=== PATIENT | male | born 1990 | race Caucasian/White ===

== ENCOUNTER 2016-09-19 12:37 | Emergency (ER) | payer BC ==
[~2016-09-19] VITALS: Ht 188 cm; Wt 122.5 kg
--- NOTE | ~2016-09-19 | CT71 ---
[facility] RADIOLOGY TEXT RESULTS PATIENT: ELMER BALLESTEROS LOCATION: [facility] : 86 UNIT #: [id number] AGE: [address]: Hector Lambert MD SEX: M ORDER DR: [id number] [address] [id number] MR#: [id number] #: [id number] NAME: ELMER BALLESTEROS : 1990 SEX: M STUDY DATE/TIME: 09/19/2016 15:21 UNIT: [facility] ROOM: STUDY DESCRIPTION: CT Head Wo Contrast Attending Physician: Hector Lambert M.D. Ordering Physician: Hector Lambert M.D. Primary Care Physician: Primary Care Physician No MEDICAL IMAGING REPORT This report is preliminary unless electronic signature is present EXAM CT head without contrast INDICATION Migraine headache, nausea x5 days. TECHNIQUE This CT exam was performed with one or more of the following radiation dose reduction techniques: automatic exposure control, adjustment of mA and/or kV according to patient size, and iterative reconstruction. FINDINGS Axial noncontrast images were obtained from the skull base to the vertex. Ventricular size and configuration are normal. There is no evidence of acute infarct or hemorrhage. There are no extra-axial fluid collections. No mass lesion or mass effect is seen. There are no skull fractures. IMPRESSION Normal noncontrast head CT. Dictated by... Jamil Junior M.D. THIS IS AN ELECTRONICALLY VERIFIED REPORT Jamil Junior M.D. at 09/20/2016 6:04 AM JJ/ruddy TD: 09/20/2016 00:01 JOB #: [id number] [facility] RADIOLOGY TEXT RESULTS PATIENT: ELMER BALLESTEROS LOCATION: [facility] : 86 UNIT #: [id number] AGE: [address]: Hector Lambert MD SEX: M ORDER DR: MEDICAL IMAGING REPORT Page 1 of 1 COPY
[2016-09-19 15:08] LABS: BASOPHIL% 0.6 % (0-2.5); EOSINOPHIL# 0.2 X10e3 (0-0.7); EOSINOPHIL% 2.3 % (0.0-7.0); HEMATOCRIT 42.5 % (38.0-50.0); HEMOGLOBIN 14.4 gm/dL (13.0-16.0); LYMPHOCYTE# 1.9 X10e3 (1.0-3.5); LYMPHOCYTE% 23.8 % (17.0-45.0); MEAN CELL VOLUME 89.8 FL (83-96); MEAN CORPUSCULAR HEMOGLOBIN 30.4 PG (28-34); MEAN CORPUSCULAR HGB CONC 33.8 g/dL (30-36); MEAN PLATELET VOLUME 8.2 FL (6.5-11.5); MONOCYTE# 0.6 X10e3 (0-1.0); MONOCYTE% 7.8 % (3.0-12.0); NEUTROPHIL# 5.1 X10e3 (1.5-7.1); NEUTROPHIL% 65.5 % (40-75); PLATELET COUNT 190 X10e3 (140-420); RED BLOOD COUNT 4.73 X10e (3.90-5.60); RED CELL DISTRIBUTION WIDTH 13.3 % (11.0-15.5); WHITE BLOOD COUNT 7.8 X10e3 (4.0-10.5)
[2016-09-19 15:09] LABS: DIFF IND NO
[2016-09-19 15:24] LABS: CALCIUM SERUM 9.1 mg/dL (8.4-10.2); CREATININE SERUM 0.7 mg/dL (0.6-1.4); GLOM FILT RATE Estimated 128.5 mL/min (>60); POTASSIUM 3.4 mmol/L (3.5-5.1)
== END 2016-09-19 16:01 | disposition home or self-care (01) ==
LOC: CED 12:37
PROVIDERS: Emergency Medicine
DX: G44.219 Episodic tension-type headache, not intractable (principal); F17.200 Nicotine dependence, unspecified, uncomplicated
CPT/HCPCS: 36415; 70450; 80048; 85025; 96374; 96375; 99284; J1100; J1200; J1885; J2765